=== PATIENT | female | born 1965 | race Caucasian/White ===

== ENCOUNTER 2019-03-26 13:21 | Emergency (ER) | payer BC ==
[2019-03-26 13:45] VITALS: BP 126/74
--- NOTE | 2019-03-26 13:47 | UC ---
Ear Complaint HPI - History of Current Complaint Chief Complaint: UCEar Stated Complaint: RIGHT EAR Time Seen by Provider: 03/26/19 13:46 Hx Last Menstrual Period: unknown Pain Intensity: 4 - Allergies/Home Medications Allergies/Adverse Reactions: Allergies Allergy/AdvReac Type Severity Reaction Status Date / Time morphine Allergy Unknown Verified 03/26/19 13:41 Reaction Details Home Medications: Home Medications Naproxen Sodium [Aleve] 220 mg PO ONCE PRN 03/26/19 [History Confirmed 03/26/19] PMH/Surg Hx/FS Hx/Imm Hx - Surgical History Surgical History: Yes Surgery Procedure, Year, and Place: OVARIAN CYSTECTOMY,OPPERECTOMY(oopherectomy) . - Family History Known Family History: Positive: None - Social History Alcohol Use: None Substance Use Type: None Smoking Status (MU): Never Smoked Tobacco - Immunization History Hx Tetanus, Diphtheria Vaccination: Yes Vaccination Up to Date: Yes Physical Exam Vital Signs: Initial Vital Signs Temp 97.9 F 03/26/19 13:42 Pulse 51 03/26/19 13:42 Resp 16 03/26/19 13:42 BP 126/74 03/26/19 13:42 Pulse Ox 100 03/26/19 13:42 Discharge - Discharge Plan Referrals: Diana Vance PA [Primary Care Provider] -
--- NOTE | 2019-03-26 13:48 | UC ---
Ear Complaint HPI - HPI Summary HPI Summary: Patient presents to urgent care with 3-4 days progressive discomfort and pressure in her right ear. Patient states had some mild sinus stuffiness. Patient take allergy medicine that seemed to help. Patient states in the when her she had little bit of discomfort in her but dizziness with an ear infection. Patient states she came forgot 4. No fevers or chills. No nausea vomiting. Patient states when she eats she feels some pressure in her ear patient without travel. . No head trauma. No vision changes. No headache. Patient's medications reviewed this visit. Patient states she's not - History of Current Complaint Chief Complaint: UCEar Stated Complaint: RIGHT EAR Time Seen by Provider: 03/26/19 13:46 Hx Obtained From: Patient Hx Last Menstrual Period: unknown ?: No Severity Initially: Mild Severity Currently: Moderate Pain Intensity: 4 Pain Scale Used: 0-10 Numeric - Allergies/Home Medications Allergies/Adverse Reactions: Allergies Allergy/AdvReac Type Severity Reaction Status Date / Time morphine Allergy Unknown Verified 03/26/19 13:41 Reaction Details Home Medications: Home Medications Naproxen Sodium [Aleve] 220 mg PO ONCE PRN 03/26/19 [History Confirmed 03/26/19] PMH/Surg Hx/FS Hx/Imm Hx Previously Healthy: Yes - Surgical History Surgical History: Yes Surgery Procedure, Year, and Place: OVARIAN CYSTECTOMY,OPPERECTOMY(oopherectomy) . - Family History Known Family History: Positive: Non-Contributory - Social History Lives: With Family Alcohol Use: None Substance Use Type: None Smoking Status (MU): Never Smoked Tobacco - Immunization History Hx Tetanus, Diphtheria Vaccination: Yes Vaccination Up to Date: Yes Review of Systems All Other Systems Reviewed And Are Negative: Yes Constitutional: Positive: Negative Skin: Positive: Negative Eyes: Positive: Negative ENT: Positive: Ear Ache Respiratory: Positive: Negative Cardiovascular: Positive: Negative Gastrointestinal: Positive: Negative Is Patient Immunocompromised?: No Physical Exam - Summary Physical Exam Summary: Vital Signs Reviewed: Yes A+Ox3, no distress Eyes: Conjunctiva Clear, DANYELL. EOM intact and full ENT: Hearing grossly normal fluid right TM - no erythema, no buldge, turbinates mild inflammed, no PND, mmoist, uvula midline, no exudate, no erythema Neck: Positive: Supple Respiratory: Positive: No respiratory distress, No accessory muscle use + CTA throughout no w/r Cardiovascular: RRR nl s1, s2 no m/r CBT <2 sec abd soft + BS nt/nd no guarding, no distension Musculoskeletal Exam: POSADA x 4 without difficulty Strength Intact, ROM Intact Neurological: Positive: Alert, + sensation throughout Psychological: Positive: Normal Response To Family Skin: Positive: no rash, no ecchymosis Triage Information Reviewed: Yes Vital Signs: Initial Vital Signs Temp 97.9 F 03/26/19 13:42 Pulse 51 03/26/19 13:42 Resp 16 03/26/19 13:42 BP 126/74 03/26/19 13:42 Pulse Ox 100 03/26/19 13:42 Ear Complaint Course/Dx - Course Course Of Treatment: Patient presents to urgent care reporting right ear pain it's been persistent and progressive for the last 3-4 days. Patient states she feels popping sensation. Patient has not taken anything for pain. Patient did take an allergy medicine once with little bit help. No nausea or vomiting. No fever, chills. On exam vital signs are stable. Patient does have fluid in her right ear without bulging or redness. Discussed with patient at length. Recommend patient start taking nasal spray continued allergy medicine and decongestant. If patient has progressive symptoms, fever, pain wasn't prescription for amoxicillin that she can start in 48 hours. Patient encouraged humidifier. Secretion precaution. Patient states comfort agreement with plan. - Differential Dx/Diagnosis Provider Diagnosis: Acute serous otitis media Discharge - Sign-Out/Discharge Documenting (check all that apply): Patient Departure All imaging exams completed and their final reports reviewed: No Studies - Discharge Plan Condition: Stable Disposition: HOME Prescriptions: Amoxicillin PO (*) [Amoxicillin 500 MG CAP*] 500 mg PO Q12H #20 cap Fluticasone NASAL SPRAY 50MCG* [Flonase NASAL SPRAY 50MCG*] 2 spray BOTH NARES DAILY #1 btl Patient Education Materials: Serous Otitis Media (ED) Referrals: Diana Vance PA [Primary Care Provider] - Additional Instructions: - stay well hydrated, avoid excess caffeine and alcohol - humidify the air in the room where you sleep - boil water, run a hot steam shower, vaporizer, cups of water by heat register - use nasal spray as prescribed - It is recommended you take allergy medication and a decongestant - if your symptoms worsen or progress over the next 1-2 days, okay to start antibiotics as prescribed. - contact your doctor or return with questions or concerns - Billing Disposition and Condition Condition: STABLE Disposition: Home
== END 2019-03-26 14:18 | disposition home or self-care (01) ==
LOC: UCCORT 13:21
DX: H65.01 Acute serous otitis media, right ear (principal); Z88.5 Allergy status to narcotic agent
CPT/HCPCS: 99212; G0463